=== PATIENT | male | born 1975 | race Caucasian/White ===

== ENCOUNTER → 2018-08-09 | Emergency (ER) | payer MEDICAID ==
[~2018-08-09] VITALS: Ht 175.3 cm; Wt 75.0 kg
[~2018-08-09] MED LIST: KETOROLAC TROMETHAMINE 10 MG TABLET PO ONE; METHOCARBAMOL 500 MG TABLET PO ONE
[2018-08-09 19:11] VITALS: BP 106/58
== END | disposition home or self-care (01) ==
LOC: EMS 15:31
DX: S39.012A Strain of muscle, fascia and tendon of lower back, initial encounter (principal); X50.1XXA Overexertion from prolonged static or awkward postures, initial encounter; Y93.89 Activity, other specified; Y92.098 Other place in other non-institutional residence as the place of occurrence of the external cause; Y99.8 Other external cause status
CPT/HCPCS: 99283

== ENCOUNTER 2021-01-11 06:21 | Emergency (ER) | payer MEDICAID ==
[~2021-01-11] VITALS: Ht 175.3 cm; Wt 81.8 kg
[2021-01-11] MEDS ORDERED: ASPIRIN 81 MG CHEWABLE TABLET PO ONE (06:45)
[2021-01-11 06:59] LABS: EOSINOPHILS % (AUTO) 3.9 % (1.0-6.0); HEMATOCRIT 43.1 % (41-53); HEMOGLOBIN 14.3 g/dL (13.5-17.5); LYMPHOCYTES # (AUTO) 1.4 K/uL (1.0-4.8); LYMPHOCYTES % (AUTO) 32.3 % (22.0-44.0); MEAN CORPUSCULAR HGB CONC 33.3 G/dL (31.0-37.0); MEAN CORPUSCULAR VOLUME 90 fL (80-100); MONOCYTES # (AUTO) 0.4 K/uL (0.1-1.0); MONOCYTES % (AUTO) 9.4 % (2.0-9.0); NEUTROPHILS # (AUTO) 2.4 K/uL (1.8-7.7); NEUTROPHILS % (AUTO) 53.4 % (40.0-70.0); PLATELET COUNT (AUTO) 285 K/uL (150-450); RED BLOOD CELL COUNT(AUTO) 4.77 MIL/uL (4.50-5.90); RED CELL DISTRIBUTION WIDTH 12.8 % (11.5-14.5)
[2021-01-11 07:14] LABS: ANION GAP 7 mmol/L (8-16); CARBON DIOXIDE 29 mmol/L (22-29); CHLORIDE 106 mmol/L (98-107); CREATININE 0.81 mg/dL (0.60-1.30); GLOMERULAR FILTR. RATE CALC > 60 mL/min (>60); GLUCOSE,RANDOM 118 mg/dL (70-110); POTASSIUM 4.1 mmol/L (3.5-5.1); SODIUM SERUM 142 mmol/L (136-145); UREA NITROGEN, BLOOD 13 mg/dL (7-18)
[2021-01-11 07:30] VITALS: BP 139/77
== END 2021-01-11 07:35 | disposition home or self-care (01) ==
LOC: EMS 06:22
DX: R07.89 Other chest pain (principal)
CPT/HCPCS: 93005; 99285; 36415-L1; 36415-TC; 71045-TC